=== PATIENT | female | born 1975 | race Caucasian/White ===

== ENCOUNTER 2016-11-24 21:35 | Emergency (ER) | payer MEDICAID ==
[~2016-11-24] VITALS: Ht 162.6 cm; Wt 72.5 kg
[~2016-11-24 21:35] MED LIST: ACET-915; CYCL-319 PO; DIAZ2TAB3 PO; FERR28TA PO; FIORICET PO; IBUP-1542 PO; PREN1TAB49 PO
[2016-11-24 21:46] VITALS: Ht 162.6 cm; Wt 72.5 kg
[2016-11-24] MEDS ORDERED: ACETAMINOPHEN 325 MG TAB PO STA (22:15)
[2016-11-24 23:14] LABS: ADD SCAN DIFF NO
[2016-11-24 23:18] LABS: BASOPHILS % 0.3 % (0.0-2.0); EOSINOPHILS % 0.1 % (0.0-7.0); HEMATOCRIT 37.5 % (37.0-47.0); HEMOGLOBIN 11.8 g/dl (12.0-16.0); LYMPHOCYTES # 1.2 10^3/ul (0.8-2.9); LYMPHOCYTES % 9.7 % (15.0-51.0); MEAN CORPUSCULAR HEMOGLOBIN 29.1 pg (29.0-33.0); MEAN CORPUSCULAR HGB CONC 31.5 g/dl (32.0-37.0); MEAN CORPUSCULAR VOLUME 92.6 fl (82.0-101.0); MEAN PLATELET VOLUME 10.7 fl (7.4-10.4); MONOCYTE # 0.9 10^3/ul (0.3-0.9); MONOCYTES % 6.8 % (0.0-11.0); NEUTROPHIL # 10.5 10^3/ul (1.6-7.5); NEUTROPHILS % 82.8 % (39.0-77.0); PLATELET COUNT 245 10^3/UL (140-415); RED BLOOD COUNT 4.05 10^6/ul (4.20-5.40); RED CELL DISTRIBUTION WIDTH 13.1 % (11.5-14.5); WHITE BLOOD COUNT 12.6 10^3/ul (4.8-10.8)
[2016-11-24 23:22] LABS: ADD UMIC YES; URINE BILIRUBIN (Dip) NEGATIVE (NEGATIVE); URINE BLOOD (Dip) 3+ (NEGATIVE); URINE COLOR LT. YELLOW (YELLOW); URINE GLUCOSE (Dip) NEGATIVE (NEGATIVE); URINE KETONES (Dip) NEGATIVE (NEGATIVE); URINE LEUKOCYTE ESTERASE (Dip) TRACE (NEGATIVE); URINE NITRITE (Dip) NEGATIVE (NEGATIVE); URINE TOTAL PROTEIN (Dip) NEGATIVE (NEGATIVE); URINE UROBILINOGEN (Dip) 0.2 E.U./dL (0.1-1.0)
[2016-11-24 23:34] LABS: ALBUMIN 4.1 g/dl (3.3-4.9); ALBUMIN/GLOBULIN RATIO 1.24; BILIRUBIN,INDIRECT 0.3 mg/dl (0-1.1); BILIRUBIN,TOTAL 0.3 mg/dl (0.2-1.3); CALCIUM 8.6 mg/dl (8.4-10.2); CREATININE 0.56 mg/dl (0.44-1.00); POTASSIUM 3.8 mmol/L (3.5-5.1); TOTAL PROTEIN 7.4 g/dl (6.1-8.1)
[2016-11-24 23:38] LABS: BACTERIA,URINE RARE; SQUAMOUS EPITHELIAL CELL,UR FEW; URINE RBCS 25-50 /HPF (0)
--- NOTE | 2016-11-25 00:12 | RADRPT ---
PROCEDURE: US Pelvis CLINICAL INDICATION: Pain. TECHNIQUE: Sonographic evaluation of the pelvis was performed utilizing both transabdominal and tr ansvaginal technique. Images were reviewed on the high-resolution PACS workstation. COMPARISON: No prior studies are available for comparison. FINDINGS: The uterus is normal in size, echogenicity, and morphology. The uterus is 8.9 x 4.7 x 5.9 cm. The endometrium is thin and normal measuring 7.6 mm in diameter. There is a 6 x 4 mm endometrial cyst. The right ovary measures 3.3 x 1.6 x 1.9 cm. The left ovary measures 2.6 x 1.6 x 2.3 cm. There is 1.4 cm complex/hemorrhagic right ovarian cyst. There are left ovarian simple follicles, largest 1 c m in size.. Color doppler vascular flow is demonstrated to both ovaries. There are no adnexal mass es. There is no free fluid in the pelvis. IMPRESSION: 1. Nonspecific endometrial cyst in the absence of . This may represent a small/early gest ational sac if the patient is . Uterus is otherwise unremarkable. 2. 1.4 cm complex/hemorrhagic right ovarian cyst. 3. Simple left ovarian follicles. 4. Otherwise negative. RPTAT: HMVK .Sixto Gann MD, Date Time Electronically viewed and signed by .Sixto Gann MD, MD on 11/25/2016 00:12 .K/
[2016-11-25] MEDS ORDERED: IBUP-1542 PO (00:19)
[2016-11-25] MEDS ORDERED: CEPH-443 PO (00:19)
--- NOTE | 2016-11-25 00:26 | ERD ---
ER Documentation Chief Complaint Date/Time DATE: 11/25/16 TIME: 00:23 Chief Complaint Vaginal bleed x3 months. bleeding is worst and chills? HPI Patient is a 41-year-old female who is complaining of vaginal bleeding for the past 3 months. She states that yesterday she developed fever and body aches and chills. Admits to mild cough and sore throat. No nausea or vomiting. She states she has been using 4 pads per day. She denies possibility of . Denies any pain. ROS All systems reviewed and are negative except as per history of present illness. Medications Home Meds Active Scripts Cephalexin* (Keflex*) 500 Mg Capsule, 500 MG PO BID for 5 Days, CAP Prov:RUDDY JIN PA-C 11/25/16 Ibuprofen* (Motrin*) 600 Mg Tab, 600 MG PO Q6, #30 TAB Prov:RUDDY JIN PA-C 11/25/16 Ibuprofen* (Motrin*) 600 Mg Tab, 600 MG PO Q6H Y for PAIN AND OR ELEVATED TEMP, #30 TAB Prov:RUDDY JIN PA-C 05/28/16 Cyclobenzaprine Hcl* (Cyclobenzaprine Hcl*) 10 Mg Tablet, 10 MG PO BID, #20 TAB Prov:RUDDY JIN PA-C 05/28/16 Diazepam* (Diazepam*) 2 Mg Tablet, 2 MG PO QHS, #10 TAB Prov:KENIA KARIMI DO 07/22/15 Acetamin/Butalbital/Caffeine* (Fioricet*) 1 Tab Tab, 1 TAB PO Q4H Y for PAIN LEVEL 1-5, #14 TAB Prov:KENIA KARIMI DO 07/22/15 Reported Medications Ferrous Sulfate (Ferrous Sulfate) 1 Tab Tablet, 1 TAB PO DAILY 03/08/11 Vits W-Ca,Fe,Fa(<1MG) () 1 Tab Tablet, 1 TAB PO DAILY 03/08/11 Acetaminophen* (Tylenol*) 325 Mg Tab 10/03/10 Allergies Allergies: Coded Allergies: No Known Drug Allergies (Verified Allergy, Mild, 10/03/10) PMhx/Soc Medical and Surgical Hx: pt denies Medical Hx, pt denies Surgical Hx History of Surgery: No Anesthesia Reaction: No Hx Neurological Disorder: No Hx Respiratory Disorders: No Hx Cardiac Disorders: No Hx Psychiatric Problems: No Hx Miscellaneous Medical Probl: No Hx Alcohol Use: No Hx Substance Use: No Hx Tobacco Use: No Smoking Status: Never smoker FmHx Family History: No diabetes Physical Exam Vitals Vital Signs Date Time Temp Pulse Resp B/P Pulse Ox O2 Delivery O2 Flow Rate FiO2 11/24/16 21:46 100.9 108 20 133/68 100 Physical Exam General: well developed, well nourished, alert, nontoxic, no distress Head: normocephalic, atraumatic Neck: Supple, nontender, no lymphadenopathy, no midline tenderness Ears: no tenderness over mastoids bilaterally, TMs nonerythematous, no exudates in canal Oropharynx: no tonsilar erythema or edema, uvula midline, no exudates, no kissing tonsils, no drooling Respiratory: Clear to auscaultation bilaterally, speaks in full sentences, no use of accesory muscles or labored breathing, no rales, ronchi, or wheezing Cardiovascular: RRR, No murmurs GI: soft, non tender, non distended, negative murphys sign, negative mcburneys point tenderness, no cva tenderness bilaterally, no rebound or guarding Back: no midline tenderness, no step offs or bony abnormalities, sensation to light touch in tact Result Diagram: 11/24/16223511/24/162235 Results 24 hrs Laboratory Tests Test 11/24/16 22:36 White Blood Count 12.610^3/ul Red Blood Count 4.0510^6/ul Hemoglobin 11.8g/dl Hematocrit 37.5% Mean Corpuscular Volume 92.6fl Mean Corpuscular Hemoglobin 29.1pg Mean Corpuscular Hemoglobin Concent 31.5g/dl Red Cell Distribution Width 13.1% Platelet Count 00153^3/UL Mean Platelet Volume 10.7fl Neutrophils % 82.8% Lymphocytes % 9.7% Monocytes % 6.8% Eosinophils % 0.1% Basophils % 0.3% Nucleated Red Blood Cells % 0.0/100WBC Neutrophils # 10.510^3/ul Lymphocytes # 1.210^3/ul Monocytes # 0.910^3/ul Eosinophils # 0.010^3/ul Basophils # 0.010^3/ul Nucleated Red Blood Cells # 0.010^3/ul Urine Color LT. YELLOW Urine Clarity SL HAZY Urine pH 6.0 Urine Specific [place] <=1.005 Urine Ketones NEGATIVE Urine Nitrite NEGATIVE Urine Bilirubin NEGATIVE Urine Urobilinogen 0.2 E.U./dL Urine Leukocyte Esterase TRACE Urine Microscopic RBC 25-50/HPF Urine Microscopic WBC 0-2/HPF Urine Squamous Epithelial Cells FEW Urine Bacteria RARE Urine Hemoglobin 3+ Urine Glucose NEGATIVE% Urine Total Protein NEGATIVE Sodium Level 136mmol/L Potassium Level 3.8mmol/L Chloride Level 105mmol/L Carbon Dioxide Level 24mmol/L Anion Gap 11 Blood Urea Nitrogen 11mg/dl Creatinine 0.56mg/dl Glucose Level 113mg/dl Calcium Level 8.6mg/dl Total Bilirubin 0.3mg/dl Direct Bilirubin 0.00mg/dl Indirect Bilirubin 0.3mg/dl Aspartate Amino Transf (AST/SGOT) 25IU/L Alanine Aminotransferase (ALT/SGPT) 27IU/L Alkaline Phosphatase 66IU/L Total Protein 7.4g/dl Albumin 4.1g/dl Globulin 3.30g/dl Albumin/Globulin Ratio 1.24 Current Medications Medications (Trade) Dose Ordered Sig/Ebonie Route PRN Reason Start Time Stop Time Status Last Admin Dose Admin Acetaminophen (Tylenol Tab) 1,000 mg ONCE STAT PO 11/24/16 22:15 11/24/16 22:16 DC 11/24/16 22:43 Procedures/MDM 41-year-old female presents with vaginal bleeding that has been going on for 3 months. She also has low-grade temperature 100.9 in triage and it rechecked in examination room is 100.5. She was given Tylenol. All of her labs were unremarkable other than mild evidence of cystitis. She did have pelvic ultrasound which showed ovarian cysts. She was given copies of all of her labs and ultrasound reports she can follow with her primary care doctor. She has no CVA tenderness or abdominal tenderness on examination. I doubt appendicitis, acute gallbladder disease, acute abdomen or any other emergent cause of her symptoms. She also has early flu symptoms. She is well-appearing in no distress. She is hemodynamically stable. 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 She is not . She was given copies of all of her labs and radiology reports that she can follow-up. Recommended this patient follow up with her primary care doctor within 48 hours or return to the emergency room for any worsening of symptoms. However this time I do believe there is suitable for outpatient management. I answered all their questions and they agreed with the plan and were discharged home. Departure Diagnosis: Primary Impression: Cystitis Additional Impression: Dysfunctional uterine bleeding Condition: Stable Patient Instructions: Cystitis, Ovarian Cyst Additional Instructions: Call your primary care doctor TOMORROW for an appointment during the next 1-2 days.See the doctor sooner or return here if your condition worsens before your appointment time. RUDDY JIN PA-C Nov 25, 2016 00:26
[2016-11-25 00:37] VITALS: BP 130/65; PULSE 91; RESP 16; TEMP 98.5
== END 2016-11-25 00:39 | disposition home or self-care (01) ==
LOC: FTE 21:35
DX: N30.91 Cystitis, unspecified with hematuria (principal)
CPT/HCPCS: 36415; 76830; 76856; 80053; 81001; 81003; 85025; Z7502; Z7610

== ENCOUNTER 2016-12-18 16:23 | Emergency (ER) | payer MEDICAID ==
[~2016-12-18] VITALS: Ht 165.1 cm; Wt 70.5 kg
[~2016-12-18 16:23] MED LIST changes: +CEPH-443 PO
[2016-12-18 16:31] VITALS: Ht 165.1 cm; Wt 70.5 kg
[2016-12-18] MEDS ORDERED: KETOROLAC 30 MG INJ IM STA (19:50)
[2016-12-18 20:04] LABS: URINE BLOOD (Dip) POC 3+ (NEGATIVE)
[2016-12-18 20:23] LABS: ADD SCAN DIFF NO
[2016-12-18 20:24] LABS: BASOPHILS % 0.4 % (0.0-2.0); EOSINOPHILS # 0.2 10^3/ul (0.0-0.5); EOSINOPHILS % 2.4 % (0.0-7.0); HEMATOCRIT 39.2 % (37.0-47.0); HEMOGLOBIN 12.5 g/dl (12.0-16.0); LYMPHOCYTES # 2.9 10^3/ul (0.8-2.9); LYMPHOCYTES % 38.6 % (15.0-51.0); MEAN CORPUSCULAR HEMOGLOBIN 29.6 pg (29.0-33.0); MEAN CORPUSCULAR HGB CONC 31.9 g/dl (32.0-37.0); MEAN CORPUSCULAR VOLUME 92.9 fl (82.0-101.0); MEAN PLATELET VOLUME 10.5 fl (7.4-10.4); MONOCYTE # 0.5 10^3/ul (0.3-0.9); MONOCYTES % 6.2 % (0.0-11.0); NEUTROPHIL # 3.9 10^3/ul (1.6-7.5); NEUTROPHILS % 52.1 % (39.0-77.0); PLATELET COUNT 273 10^3/UL (140-415); RED BLOOD COUNT 4.22 10^6/ul (4.20-5.40); RED CELL DISTRIBUTION WIDTH 13.4 % (11.5-14.5); WHITE BLOOD COUNT 7.5 10^3/ul (4.8-10.8)
[2016-12-18 20:31] LABS: ADD UMIC YES; URINE BILIRUBIN (Dip) NEGATIVE (NEGATIVE); URINE BLOOD (Dip) 3+ (NEGATIVE); URINE COLOR LT. YELLOW (YELLOW); URINE GLUCOSE (Dip) NEGATIVE (NEGATIVE); URINE KETONES (Dip) NEGATIVE (NEGATIVE); URINE LEUKOCYTE ESTERASE (Dip) NEGATIVE (NEGATIVE); URINE NITRITE (Dip) NEGATIVE (NEGATIVE); URINE TOTAL PROTEIN (Dip) NEGATIVE (NEGATIVE); URINE UROBILINOGEN (Dip) 0.2 E.U./dL (0.1-1.0)
[2016-12-18 20:33] LABS: ALBUMIN 4.8 g/dl (3.3-4.9); POTASSIUM 3.4 mmol/L (3.5-5.1)
[2016-12-18 20:36] LABS: ALBUMIN/GLOBULIN RATIO 1.29; BILIRUBIN,INDIRECT 0.8 mg/dl (0-1.1); BILIRUBIN,TOTAL 0.8 mg/dl (0.2-1.3); CALCIUM 9.3 mg/dl (8.4-10.2); CREATININE 0.59 mg/dl (0.44-1.00); TOTAL PROTEIN 8.5 g/dl (6.1-8.1)
--- NOTE | 2016-12-18 20:44 | RADRPT ---
PROCEDURE: Ultrasound of the right lower extremity venous system. CLINICAL INDICATION: Right leg pain and swelling, deep venous thrombosis TECHNIQUE: Richards scale with and without compression, color doppler, spectral doppler of the venous system of the right lower extremity was performed. Venous augmentation maneuvers were utilized. COMPARISON: No prior studies are available for comparison. FINDINGS: Common femoral vein: Patent. Femoral vein: Patent. Popliteal vein: Patent. Calf veins: Patent. No soft tissue abnormalities are identified. IMPRESSION: No evidence of a deep vein thrombosis within the right lower extremity. RPTAT: AADD .George Edwards MD, MD Date Time Electronically viewed and signed by .George Edwards MD, on 12/18/2016 20:44 .B/
[2016-12-18 20:45] LABS: BACTERIA,URINE RARE; SQUAMOUS EPITHELIAL CELL,UR FEW
--- NOTE | 2016-12-18 20:52 | RADRPT ---
PROCEDURE: US Pelvis. CLINICAL INDICATION: Pelvic pain. TECHNIQUE: Multiple sonographic images of the pelvis were obtained utilizing a transabdominal and endovaginal technique. The images were reviewed on a PACS workstation. COMPARISON: No. FINDINGS: The uterus is visualized and measures 12.4 cm sagittal by 4.5 cm AP by 5.5 cm transverse. The endome trial echo complex is normal and measures 7.5 mm. There is no evidence for free fluid. The right ova ry has a normal echotexture and measures 2.5 x 2.6 x 1.9 cm . The left ovary has a normal echotextu re and measures 3.2 x 2 x 2.3 cm. No adnexal masses are noted. IMPRESSION: Unremarkable pelvic ultrasound. RPTAT:AAJJ Physician Shruti Date Time Electronically viewed and signed by Physician Shruti on 12/18/2016 20:51 RICK/
[2016-12-18] MEDS ORDERED: IBUP-1542 PO (21:09)
[2016-12-18] MEDS ORDERED: HYDR-906 PO (21:09)
[2016-12-18] MEDS ORDERED: POTASSIUM CHLORIDE (SR) 10 MEQ TAB PO ONE (21:30)
[2016-12-18 21:33] VITALS: BP 135/76; PULSE 69; RESP 16
--- NOTE | 2016-12-19 17:44 | ERD ---
ER Documentation Chief Complaint Date/Time DATE: 12/19/16 TIME: 17:35 Chief Complaint Complais of vomiting and headache with multple complaints HPI This is a 41-year-old [place]-speaking female that presented to the emergency department with multiple complaints. She indicates that for the past several days she has been experiencing very heavy vaginal bleeding. She also complains of mild suprapubic tenderness. She indicates she has very regular menstrual cycles and has been utilizing for super absorbency pads a day for the past 7 days. Her last menstrual cycle ended 2 weeks ago. She states she is currently sexually active with one partner but denies any abnormal urethral discharge. She is no frequency urgency or dysuria. She felt slightly lightheaded and dizzy and had a bandlike headache but states this is not the worst headache of her life and she denies any neck pain. She denies any rashes. She has no history of metromenorrhagia. The patient also indicates that she has been experiencing right calf tenderness for the past 2 days. The patient is not currently on control. She denies any recent travel or prolonged immobilization. She states the right calf tenderness occurred after she had been walking on a treadmill at a gym. However the patient states she works out on a regular basis and denied any recent fall or specific trauma to the right calf. The right calf pain is a dull achy sensation exacerbated with touch and ambulation. She denies any Swelling or redness. She has no shortness of breath at rest or exertion. ROS All systems reviewed and are negative except as per history of present illness. Medications Home Meds Active Scripts Ibuprofen* (Motrin*) 600 Mg Tab, 600 MG PO Q8, #30 TAB Prov:ROSALINE FRASER 12/18/16 Hydrocodone/Acetaminophen ([place] 5-325 Tablet) 1 Each Tablet, 1 TAB PO Q6H Y for PAIN, #10 TAB Prov:ROSALINE FRASER 12/18/16 Cephalexin* (Keflex*) 500 Mg Capsule, 500 MG PO BID for 5 Days, CAP Prov:RUDDY JIN PA-C 11/25/16 Ibuprofen* (Motrin*) 600 Mg Tab, 600 MG PO Q6, #30 TAB Prov:RUDDY JIN PA-C 11/25/16 Ibuprofen* (Motrin*) 600 Mg Tab, 600 MG PO Q6H Y for PAIN AND OR ELEVATED TEMP, #30 TAB Prov:RUDDY JIN PA-C 05/28/16 Cyclobenzaprine Hcl* (Cyclobenzaprine Hcl*) 10 Mg Tablet, 10 MG PO BID, #20 TAB Prov:RUDDY JIN PA-C 05/28/16 Diazepam* (Diazepam*) 2 Mg Tablet, 2 MG PO QHS, #10 TAB Prov:KENIA KARIMI DO 07/22/15 Acetamin/Butalbital/Caffeine* (Fioricet*) 1 Tab Tab, 1 TAB PO Q4H Y for PAIN LEVEL 1-5, #14 TAB Prov:KENIA KARIMI DO 07/22/15 Reported Medications Ferrous Sulfate (Ferrous Sulfate) 1 Tab Tablet, 1 TAB PO DAILY 03/08/11 Vits W-Ca,Fe,Fa(<1MG) () 1 Tab Tablet, 1 TAB PO DAILY 03/08/11 Acetaminophen* (Tylenol*) 325 Mg Tab 10/03/10 Allergies Allergies: Coded Allergies: No Known Drug Allergies (Verified Allergy, Mild, 10/03/10) PMhx/Soc Medical and Surgical Hx: pt denies Medical Hx, pt denies Surgical Hx History of Surgery: No Anesthesia Reaction: No Hx Neurological Disorder: No Hx Respiratory Disorders: No Hx Cardiac Disorders: No Hx Psychiatric Problems: No Hx Miscellaneous Medical Probl: No Hx Alcohol Use: No Hx Substance Use: No Hx Tobacco Use: No Smoking Status: Never smoker Physical Exam Vitals Vital Signs Date Time Temp Pulse Resp B/P Pulse Ox O2 Delivery O2 Flow Rate FiO2 12/18/16 21:33 69 16 135/76 99 Room Air 12/18/16 16:31 98.3 77 20 135/87 100 Physical Exam Constitutional:Well-developed. Well-nourished. HEENT:Normocephalic. Atraumatic.Pupils were equal round reactive to light. Moist mucous membranes.No tonsillar exudates. No conjunctival pallor Neck: No nuchal rigidity. No lymphadenopathy. No posterior cervical spine tenderness or step-offs. Respiratory: Not using accessory muscles of respiration.Lungs were clear to auscultation bilaterally. No rhonchi. No rales. No wheezing. Cardiovascular: Regular rate regular rhythm.No murmurs. No rubs were appreciated.S1, S2 normal. Distal pulses are palpable 2+ bilaterally. GI: Abdomen was soft. Nontender. Non Distended. No pulsatile abdominal masses or bruits. No rebound. No guarding. Bowel sounds were present and normal. Muscle skeletal: Full range of motion of both the upper and lower extremities bilaterally.Normal muscle tone. Right calf tenderness with no asymmetrical swelling. Homans sign negative bilaterally. Right calf tenderness is exacerbated with plantar flexion and dorsiflexion of the right foot. : exam was performed by myself and the patient denied a female nurse varnish thinner to be present for the exam. There is a minimal amount of blood present within the vaginal vault. No cervical motion tenderness. No adnexal tenderness or adnexal masses. No endocervical discharge Skin: No petechia, no purpura. No lesions on the palms or the soles of the feet. No maculopapular rash. NEURO: Patient was alert, awake, orientated x3.No facial droop. Gait observed and normal with no ataxia.Speech had regular rate and rhythm. No focal neurological deficits. Result Diagram: 12/18/16195412/18/161954 Results 24 hrs Laboratory Tests Test 12/18/16 19:55 12/18/16 20:00 12/18/16 20:05 White Blood Count 7.510^3/ul Red Blood Count 4.2210^6/ul Hemoglobin 12.5g/dl Hematocrit 39.2% Mean Corpuscular Volume 92.9fl Mean Corpuscular Hemoglobin 29.6pg Mean Corpuscular Hemoglobin Concent 31.9g/dl Red Cell Distribution Width 13.4% Platelet Count 97222^3/UL Mean Platelet Volume 10.5fl Neutrophils % 52.1% Lymphocytes % 38.6% Monocytes % 6.2% Eosinophils % 2.4% Basophils % 0.4% Nucleated Red Blood Cells % 0.0/100WBC Neutrophils # 3.910^3/ul Lymphocytes # 2.910^3/ul Monocytes # 0.510^3/ul Eosinophils # 0.210^3/ul Basophils # 0.010^3/ul Nucleated Red Blood Cells # 0.010^3/ul Sodium Level 138mmol/L Potassium Level 3.4mmol/L Chloride Level 100mmol/L Carbon Dioxide Level 24mmol/L Anion Gap 17 Blood Urea Nitrogen 7mg/dl Creatinine 0.59mg/dl Glucose Level 96mg/dl Calcium Level 9.3mg/dl Total Bilirubin 0.8mg/dl Direct Bilirubin 0.00mg/dl Indirect Bilirubin 0.8mg/dl Aspartate Amino Transf (AST/SGOT) 20IU/L Alanine Aminotransferase (ALT/SGPT) 29IU/L Alkaline Phosphatase 55IU/L Total Protein 8.5g/dl Albumin 4.8g/dl Globulin 3.70g/dl Albumin/Globulin Ratio 1.29 Urine Color LT. YELLOW Urine Clarity CLEAR Urine pH 7.0 Urine Specific [place] 1.010 Urine Ketones NEGATIVE Urine Nitrite NEGATIVE Urine Bilirubin NEGATIVE Urine Urobilinogen 0.2 E.U./dL Urine Leukocyte Esterase NEGATIVE Urine Microscopic RBC 5-10/HPF Urine Microscopic WBC 0-2/HPF Urine Squamous Epithelial Cells FEW Urine Bacteria RARE Urine Hemoglobin 3+ Urine Glucose NEGATIVE% Urine Total Protein NEGATIVE Bedside Urine pH (LAB) 7.0 Bedside Urine Protein (LAB) Negative Bedside Urine Glucose (UA) Negative Bedside Urine Ketones (LAB) Negative Bedside Urine Blood 3+ Bedside Urine Nitrite (LAB) Negative Bedside Urine Leukocyte Esterase (L Negative Current Medications Medications (Trade) Dose Ordered Sig/Ebonie Route PRN Reason Start Time Stop Time Status Last Admin Dose Admin Ketorolac Tromethamine (Toradol) 60 mg ONCE STAT IM 12/18/16 19:50 12/18/16 19:53 DC 12/18/16 20:44 Potassium Chloride (Klor-Con 10) 10 meq ONCE ONCE PO 12/18/16 21:30 12/18/16 21:31 DC 12/18/16 21:32 Procedures/MDM This patient presented to the emergency department with right calf tenderness. I obtained a venous duplex ultrasound which was negative for DVT. I did feel that this likely was a result of a gastrocnemius tear and that she would benefit from an outpatient MRI. She was given a prescription of Naprosyn for analgesic control. The patient had also presented to the emergency department with mild pelvic pain and irregular menstruation. My differential diagnosis included but was not limited to fibroids, ectopic , endometriosis, ovarian cyst, adeno myosis, cervical carcinoma. The patient's urine test was negative. I obtain ancillary laboratory work and there is no electrolyte abnormalities and the patient's hemoglobin was 12. The patient also complained of a bandlike headache and dizziness which I felt could have been exacerbated by the patient' s dysfunctional uterine bleeding. I obtained an ultrasound of the pelvis which did not indicate any acute abnormalities. The patient states she has an [employer] will follow up with them for further evaluation to the patient's dysfunctional uterine bleeding The patient was discharged home in fair condition. They were instructed to return to the emergency department at any time if there was any worsening of their condition. The patient stated they would follow up with their PCP in the next 24-48 hours to initiate a suitable medication regimen under the care of their PCP as well as to allow their PCP to monitor any drug reactions. The patient was discharged home with prescriptions after they gave informed consent to the new medication. They were also fully informed by myself on the adverse effects and adverse drug interactions in order to provide adequate safeguards to prevent possible adverse reactions to medications. Departure Diagnosis: Primary Impression: Dysfunctional uterine bleeding Additional Impression: Calf tenderness Condition: Fair Patient Instructions: Lower Body Exercises: Calf Stretch, Dysfunctional Uterine Bleeding, Muscle Strain, Extremity ROSALINE FRASER December 19, 2016 17:44
== END 2016-12-18 21:37 | disposition home or self-care (01) ==
LOC: FTE 16:23
DX: N93.8 Other specified abnormal uterine and vaginal bleeding (principal); M79.661 Pain in right lower leg
CPT/HCPCS: 76830; 76856; 80053; 81001; 85025; 87086; 93971; 96372; J1885; Z7502; Z7610; 81003

== ENCOUNTER 2019-02-23 16:08 | Emergency (ER) | payer MEDICAID ==
[~2019-02-23] VITALS: Ht 160 cm; Wt 79.7 kg
[~2019-02-23 16:08] MED LIST changes: -CYCL-319 PO; +CYCL10TA7 PO; +HYDR-4011 PO
[2019-02-23 16:21] VITALS: BP 135/73; PULSE 69; RESP 20; Ht 160 cm; Wt 79.7 kg
[2019-02-23] MEDS ORDERED: MECLIZINE 12.5 MG TAB PO ONE (17:00)
[2019-02-23] MEDS ORDERED: MECL-77 PO (17:37)
--- NOTE | 2019-02-23 17:41 | ERD ---
ER Documentation Chief Complaint Chief Complaint c/o dizziness with vomiting x1 week HPI 43-year-old female who presents with a multitude of different complaints over a subacute timeframe. Patient's main complaint today is dizziness. She describes approximately 7 days of dizziness that is sudden in onset, room spinning sensation and alleviate it by sitting still. It is worsened by moving her head from side to side. She denies any headache slurred speech or difficulty walking. Patient additionally describes some mild pain to the suprapubic region when she is having her menstrual cycle. Patient is just finishing her menstrual cycle and notes pain that is dramatically improved only 1 out of 10 currently. She has yet to follow-up with her [employer] [employer]. Patient also notes that when she eats food she feels like her right thigh gets swollen only occurring when she is eating food and completely alleviates approximate 10 minutes after she eats food. She has no swelling currently. She denies any chest pain or pleuritic pain. No fevers or chills. Translation services were utilized during this patient's encounter Language: Croatian Source: In person ROS All systems reviewed and are negative except as per history of present illness. Medications Home Meds Active Scripts Meclizine Hcl* (Meclizine Hcl*) 25 Mg Tablet, 25 MG PO Q8H PRN for DIZZINESS, #20 TAB Prov:MILLER RASHID MD 02/23/19 Ibuprofen* (Motrin*) 600 Mg Tab, 600 MG PO Q8, #30 TAB Prov:ROSALINE FRASER MD 12/18/16 Hydrocodone/Acetaminophen (Minden 5-325 Tablet) 1 Each Tablet, 1 TAB PO Q6H PRN for PAIN, #10 TAB Prov:ROSALINE FRASER MD 12/18/16 Cephalexin* (Keflex*) 500 Mg Capsule, 500 MG PO BID for 5 Days, CAP Prov:RUDDY JIN PA-C 11/25/16 Ibuprofen* (Motrin*) 600 Mg Tab, 600 MG PO Q6, #30 TAB Prov:RUDDY JIN PA-C 11/25/16 Ibuprofen* (Motrin*) 600 Mg Tab, 600 MG PO Q6H PRN for PAIN AND OR ELEVATED TEMP, #30 TAB Prov:RUDDY JIN PA-C 05/28/16 Cyclobenzaprine Hcl* (Cyclobenzaprine Hcl*) 10 Mg Tablet, 10 MG PO BID, #20 TAB Prov:RUDDY JIN PA-C 05/28/16 Diazepam* (Diazepam*) 2 Mg Tablet, 2 MG PO QHS, #10 TAB Prov:KENIA KARIMI DO 07/22/15 Acetamin/Butalbital/Caffeine* (Fioricet*) 1 Tab Tab, 1 TAB PO Q4H PRN for PAIN LEVEL 1-5, #14 TAB Prov:KENIA KARIMI DO 07/22/15 Reported Medications Ferrous Sulfate (Ferrous Sulfate) 1 Tab Tablet, 1 TAB PO DAILY 03/08/11 Vits W-Ca,Fe,Fa(<1MG) () 1 Tab Tablet, 1 TAB PO DAILY 03/08/11 Acetaminophen* (Tylenol*) 325 Mg Tab 10/03/10 Allergies Allergies: Coded Allergies: No Known Drug Allergies (Verified Allergy, Mild, 10/03/10) PMhx/Soc Medical and Surgical Hx: pt denies Medical Hx, pt denies Surgical Hx History of Surgery: No Anesthesia Reaction: No Hx Neurological Disorder: No Hx Respiratory Disorders: No Hx Cardiac Disorders: No Hx Psychiatric Problems: No Hx Miscellaneous Medical Probl: No Hx Alcohol Use: No Hx Substance Use: No Hx Tobacco Use: No Smoking Status: Never smoker FmHx Family History: No diabetes Physical Exam Vitals Vital Signs Date Temp Pulse Resp B/P (MAP) Pulse Ox O2 O2 Flow FiO2 Time Delivery Rate 02/23/19 98.6 69 20 135/73 99 16:21 (93) Physical Exam General: Well developed, well nourished, no acute distress Head: Normocephalic, atraumatic. Eyes: Pupils equally reactive, EOM intact ENT: Moist mucous membranes Neck: Supple, no lymphadenopathy Respiratory: Lungs clear bilaterally, no distress Cardiovascular: RRR, no murmurs, rubs, or gallops Abdominal: Soft, non-tender, non-distended, no peritoneal signs : Deferred MSK: No edema, no unilateral swelling, 5/5 strength, negative Homans sign bilaterally Neurologic: Alert and oriented, moving all extremities, normal speech, no focal weakness, no cerebellar signs slightly reproducible horizontal nystagmus without vertical nystagmus Skin: No rash Psych: Normal mood Result Diagram: 02/23/19165802/23/19 165 Results 24 hrs Laboratory Tests Test 02/23/19 16:59 02/23/19 17:12 White Blood Count 8.9 10^3/ul Red Blood Count 3.94 10^6/ul Hemoglobin 12.3 g/dl Hematocrit 36.8 % Mean Corpuscular Volume 93.4 fl Mean Corpuscular Hemoglobin 31.2 pg Mean Corpuscular Hemoglobin Concent 33.4 g/dl Red Cell Distribution Width 12.2 % Platelet Count 242 10^3/UL Mean Platelet Volume 9.9 fl Immature Granulocytes % 0.200 % Neutrophils % 68.9 % Lymphocytes % 22.9 % Monocytes % 5.8 % Eosinophils % 1.8 % Basophils % 0.4 % Nucleated Red Blood Cells % 0.0 /100WBC Immature Granulocytes # 0.020 10^3/ul Neutrophils # 6.1 10^3/ul Lymphocytes # 2.0 10^3/ul Monocytes # 0.5 10^3/ul Eosinophils # 0.2 10^3/ul Basophils # 0.0 10^3/ul Nucleated Red Blood Cells # 0.0 10^3/ul Sodium Level 140 mmol/L Potassium Level 3.9 mmol/L Chloride Level 105 mmol/L Carbon Dioxide Level 27 mmol/L Anion Gap 8 Blood Urea Nitrogen 11 mg/dl Creatinine 0.54 mg/dl Est Glomerular Filtrat Rate mL/min > 60 mL/min Glucose Level 106 mg/dl Calcium Level 9.3 mg/dl POC Beta HCG, Qualitative NEGATIVE Current Medications Medications Dose Sig/Ebonie Start Time Status Last (Trade) Ordered Route PRN Stop Time Admin Dose Reason Admin Meclizine 25 mg ONCE ONCE 02/23/19 DC 02/23/19 HCl PO 17:00 02/23/19 17:19 (Antivert) 17:01 Procedures/MDM LAB INTERPRETATION: I reviewed the laboratory testing and it shows no evidence of acute process MEDICAL DECISION MAKING: The patient has multiple different complaints. Her main complaint is vertigo that seems to be very consistent with benign positional vertigo. It is reproducible with horizontal nystagmus. Patient has no signs or symptoms concerning for central nervous system process. She has no evidence of central process that warrant CT imaging of the brain. Treatment with meclizine and outpatient follow-up would be reasonable. Her other nonspecific complaints are what appear to be dysmenorrhea. The patient needs outpatient [employer] follow-up. She has no pain currently. Her symptoms are not consistent with ovarian cyst. Pelvic ultrasound not indicated currently. Patient also describes right thigh swelling when she eats food. This is very transient. The patient has no signs or symptoms concerning for DVT. The patient has no clinical evidence of DVT. I do not believe duplex would be indicated. Unclear etiology. This seems to be possibly psychosomatic. ER COURSE: * Laboratory testing is reassuring. Patient can be safely discharged home. She was given meclizine. CONSULTATION: None DISPOSITION PLAN: The patient does not have an identifiable emergent medical condition that warrants inpatient hospitalization at this time. The patient is deemed safe for discharge with outpatient follow-up. We discussed follow up with the patient's primary care doctor within 24 to 48 hours as needed. We also discussed return to the emergency room for worsening symptoms or worsening condition. Outpatient referral: None required Discharge Medications: Meclizine Departure Diagnosis: Primary Impression: Benign positional vertigo Laterality: unspecified laterality Qualified Codes: H81.10 - Benign paroxysmal vertigo, unspecified ear Additional Impression: Dysmenorrhea Condition: Stable Patient Instructions: Benign Positional Vertigo, Dysmenorrhea Referrals: [facility] Usted se joya hecho un examen mdico de control que le indica que no est en segundo condicin que requiera tratamiento urgente en el Departamento de Emergencia. Un estudio ms profundo y el tratamiento de gibson condicin pueden esperar sin ningn riesgo hasta que usted sea atendida/o en el consultorio de gibson mdico o segundo clni ca. Es responsabilidad suya arreglar segundo jj para el seguimiento del aura. MANEJO DE CONDICIONES NO URGENTES EN EL FUTURO 1) Si usted tiene un mdico de atencin primaria: Usted debera llamar a gibson mdico de atencin primaria antes de venir al departamento de emergencia. Despus de las horas de consultorio, gibson doctor o gibson asociado/a est disponible por telfono. El mdico o enfermero de kayla en el servicio telefnico puede asesorarle por milagro medio para atender el problema, o aura contrario se puede programar segundo jj. 2) Si usted no tiene un mdico de atencin primaria: Llame al mdico o clnica de referencia que aparece abajo ilya las horas de consultorio para hacer segundo jj para que le vean. CLINICAS: [facility] [phone] [facility] [phone] [place] 169 [phone] [facility] [place] [id number] [phone] [facility]. [place] [address] [phone] [facility]. [phone] [address] [facility]. [facility] () Usted se joya hecho un examen mdico de control que le indica que no est en segundo condicin que requiera tratamiento urgente en el Departamento de Emergencia. Un estudio ms profundo y el tratamiento de gibson condicin pueden esperar sin ningn riesgo hasta que usted sea atendida/o en el consultorio de gibson mdico o segundo clnica. Es responsabilidad suya arreglar segundo jj para el seguimiento del aura. MANEJO DE CONDICIONES NO URGENTES EN EL FUTURO 1) Si usted tiene un mdico de atencin primaria: Usted debera llamar a gibson mdico de atencin primaria antes de venir al departamento de emergencia. Despus de las horas de consultorio, gibson doctor o gibson asociado/a est disponible por telfono. El mdico o enfermero de kayla en el servicio telefnico puede asesorarle por milagro medio para atender el problema, o aura contrario se puede programar segundo jj. 2) Si usted no tiene un mdico de atencin primaria: Llame al mdico o condado institucions de referencia que aparece abajo ilya las horas de consultorio para hacer segundo jj para que le vean. SI USTED NO PUEDE PAGAR PARA ESTRELLA UN MEDICO puede ir a: [facility] [address] [place] [address] [facility] [address] [place] [address] [facility] [address] [place] [address] [facility] [address] [place] [id number] [facility] [employer] [place] [id number] [facility] [address] [place] [address] OFFICE FAX [facility] [address] [place] [address] [facility] [address] [place] [address] [facility] [address] [facility] [address] [facility] [address] [address] [facility] [address] [place] [address] [facility] [address] [place] [address] [facility] [id number] - KATHY FRANKLIN [address] [facility] [address] [address], [place] [address] [facility] [address], [facility] [address] [address] [facility] [address] [place] [address] Additional Instructions: Llame al doctor nombrado abajo (Referral Sources) MAANA y valerio segundo JJ PARA DENTRO DE SEGUNDO SEMANA. Dgale a la secretaria que nosotros le instruimos hacer esta jj.Avise o llame si gibson condicin se empeora antes de la jj. MILLER RASHID MD Feb 23, 2019 17:41
== END 2019-02-23 17:55 | disposition home or self-care (01) ==
LOC: E/R 16:08
DX: H81.10 Benign paroxysmal vertigo, unspecified ear (principal); N94.6 Dysmenorrhea, unspecified
CPT/HCPCS: 36415; 80048; 81025; 85025; Z7502; Z7610; 99283